=== PATIENT | male | born 1965 | race Caucasian/White ===

== ENCOUNTER 2017-07-30 08:33 | Emergency (ER) | payer BC ==
[~2017-07-30] VITALS: Ht 182.9 cm; Wt 104.3 kg
[2017-07-30] MEDS ORDERED: IV NORMAL SALINE 1000ML BAG 1,000 ML IV ONE (09:00)
[2017-07-30 09:04] LABS: BASO # 0.1 x10^3/uL (0.0-0.2); BASO % 1 % (0-3); BILIRUBIN,URINE NEGATIVE (NEG); EOS % 1 % (0-3); GLUCOSE,URINE NEGATIVE (NEG); HEMATOCRIT 48.3 % (39.0-53.0); LYMPH # 1.3 x10^3/uL (1.0-4.8); LYMPH % 8 % (24-48); MEAN CORPUSCULAR HEMOGLOBIN 29 pg (25-35); MEAN CORPUSCULAR HGB CONC 33 g/dL (31-37); MEAN CORPUSCULAR VOLUME 88 fL (79-100); MONO % 8 % (0-9); NEUT % 83 % (31-73); NITRITE,URINE POSITIVE (NEG); PLATELET COUNT 251 x10^3/uL (140-400); PROTEIN,URINE 30 mg/dL (NEG-TRACE); RED BLOOD COUNT 5.48 x10^6/uL (4.30-5.70); UROBILINOGEN,URINE 0.2 mg/dL (0.2 mg/dL); WHITE BLOOD COUNT 16.7 x10^3/uL (4.0-11.0)
[2017-07-30 09:12] LABS: CALCIUM 9.4 mg/dL (8.5-10.1); CREATININE 1.1 mg/dL (0.7-1.3); GFR 70.9; POTASSIUM 3.6 mmol/L (3.5-5.1)
[2017-07-30 09:13] LABS: BACTERIA,URINE MANY /HPF (0-FEW); SQUAMOUS EPITHELIAL CELL,UR OCC /LPF; WBC,URINE >40 /HPF (0-4)
[2017-07-30 09:18] LABS: ALBUMIN 4.2 g/dL (3.4-5.0); TOTAL BILIRUBIN 0.7 mg/dL (0.2-1.0); TOTAL PROTEIN 8.4 g/dL (6.4-8.2)
--- NOTE | 2017-07-30 09:21 | PHYS DOC ---
Past Medical History Past Medical History: Other Additional Past Medical Histor: KIDNEY STONES Past Surgical History: Other Additional Past Surgical Histo: NGUYEN TO FEET AND LEGS WHEN HE WAS 4 WITH MULTIPLE SURGERIES Alcohol Use: Rarely Drug Use: None Adult General Chief Complaint Chief Complaint: ABDOMINAL PAIN HPI HPI Patient is a 52 year old male who presents with abdominal pain, headache, nausea, body aches, increased urinary frequency, concentrated urine, decreased appetite. No BMs in 2 days but reports + flatus. Denies abdominal surgery in the past. No fevers. Denies that he received flu shot this year. No cough, no chest pain. Pt has h/o kidney stone 1 year ago and pt is unsure if similar symptoms. Symptoms came on gradually. PCP is Review of Systems Review of Systems Constitutional: Denies fever or chills [] Eyes: Denies change in visual acuity, redness, or eye pain [] HENT: Denies nasal congestion or sore throat [] Respiratory: Denies cough or shortness of breath [] Cardiovascular: denies chest pain GI: per hpi : Denies dysuria or hematuria [] Musculoskeletal: reports back pain, body aches Integument: Denies rash or skin lesions [] Neurologic: reports intermittent headaches, denies focal weakness or sensory changes [] Current Medications Current Medications Current Medications Medications (Trade) Dose Ordered Sig/Keanu Start Time Stop Time Status Last Admin Dose Admin Ceftriaxone Sodium 50 ml @ 100 mls/hr 1X ONCE 07/30/17 09:30 07/30/17 09:59 DC 07/30/17 09:33 100 MLS/HR Info (Do NOT chart on this entry -- for MONITORING) 1 each PRN DAILY PRN 07/30/17 09:45 08/01/17 09:44 Iohexol (Omnipaque 300 Mg/ml) 75 ml 1X ONCE 07/30/17 09:45 07/30/17 09:46 DC 07/30/17 09:53 75 ML Ketorolac Tromethamine (Toradol) 30 mg 1X ONCE 07/30/17 11:15 07/30/17 11:16 DC 07/30/17 11:22 30 MG Ondansetron HCl (Zofran) 4 mg 1X ONCE 07/30/17 11:15 07/30/17 11:16 DC 07/30/17 11:20 4 MG Sodium Chloride 1,000 ml @ 1,000 mls/hr 1X ONCE 07/30/17 09:00 07/30/17 09:59 DC 07/30/17 09:06 1,000 MLS/HR Allergies Allergies Allergies Coded Allergies Type Severity Reaction Last Updated Verified morphine Allergy Mild 07/30/17 Yes Physical Exam Physical Exam Constitutional: Well developed, well nourished, appears uncomfortable HENT: Normocephalic, atraumatic, bilateral external ears normal, oropharynx moist, no oral exudates, nose normal. [] Eyes: PERRLA, EOMI, conjunctiva normal, no discharge. [] Neck: Normal range of motion, no tenderness, supple, no stridor. [] Cardiovascular:Heart rate regular with regular rhythm, no murmur [] Lungs & Thorax: Bilateral breath sounds clear to auscultation [] Abdomen: Bowel sounds normal, soft, no tenderness, no masses, no pulsatile masses, nondistended Skin: Warm, dry, no erythema, no rash. [] Back: No tenderness, no CVA tenderness. [] Extremities: No tenderness, no cyanosis, no clubbing, ROM intact, no edema. [] Neurologic: Alert and oriented X 3, normal motor function, normal sensory function, no focal deficits noted. [] Psychologic: Affect normal, judgement normal, mood normal. [] Current Patient Data Vital Signs Vital Signs Date Time Temp Pulse Resp B/P (MAP) Pulse Ox O2 Delivery O2 Flow Rate FiO2 07/30/17 10:55 80 20 141/88 (105) 97 Room Air 07/30/17 08:44 98.1 98.1 Lab Values Laboratory Tests Test 07/30/17 08:50 07/30/17 09:00 White Blood Count 16.7 x10^3/uL (4.0-11.0) H Red Blood Count 5.48 x10^6/uL (4.30-5.70) Hemoglobin 16.0 g/dL (13.0-17.5) Hematocrit 48.3 % (39.0-53.0) Mean Corpuscular Volume 88 fL (79-100) Mean Corpuscular Hemoglobin 29 pg (25-35) Mean Corpuscular Hemoglobin Concent 33 g/dL (31-37) Red Cell Distribution Width 13.0 % (11.5-14.5) Platelet Count 251 x10^3/uL (140-400) Neutrophils (%) (Auto) 83 % (31-73) H Lymphocytes (%) (Auto) 8 % (24-48) L Monocytes (%) (Auto) 8 % (0-9) Eosinophils (%) (Auto) 1 % (0-3) Basophils (%) (Auto) 1 % (0-3) Neutrophils # (Auto) 13.9 x10^3uL (1.8-7.7) H Lymphocytes # (Auto) 1.3 x10^3/uL (1.0-4.8) Monocytes # (Auto) 1.3 x10^3/uL (0.0-1.1) H Eosinophils # (Auto) 0.2 x10^3/uL (0.0-0.7) Basophils # (Auto) 0.1 x10^3/uL (0.0-0.2) Segmented Neutrophils % 83 % (35-66) H Band Neutrophils % 4 % (0-9) Lymphocytes % 8 % (24-48) L Monocytes % 4 % (0-10) Eosinophils % 1 % (0-5) Platelet Estimate Adequate (ADEQUATE) Urine Collection Type Unknown Urine Color [place] Urine Clarity Clear Urine pH 6.0 Urine Specific [place] >=1.030 Urine Protein 30 mg/dL (NEG-TRACE) Urine Glucose (UA) Negative mg/dL (NEG) Urine Ketones (Stick) Trace mg/dL (NEG) Urine Blood Small (NEG) Urine Nitrite Positive (NEG) Urine Bilirubin Negative (NEG) Urine Urobilinogen Dipstick 0.2 mg/dL (0.2 mg/dL) Urine Leukocyte Esterase Moderate (NEG) Urine RBC 3-5 /HPF (0-2) Urine WBC >40 /HPF (0-4) Urine Squamous Epithelial Cells Occ /LPF Urine Bacteria Many /HPF (0-FEW) Urine Mucus Mod /LPF Sodium Level 136 mmol/L (136-145) Potassium Level 3.6 mmol/L (3.5-5.1) Chloride Level 100 mmol/L (98-107) Carbon Dioxide Level 30 mmol/L (21-32) Anion Gap 6 (6-14) Blood Urea Nitrogen 17 mg/dL (8-26) Creatinine 1.1 mg/dL (0.7-1.3) Estimated GFR (Cockcroft-Gault) 70.9 BUN/Creatinine Ratio 15 (6-20) Glucose Level 108 mg/dL (70-99) H Calcium Level 9.4 mg/dL (8.5-10.1) Total Bilirubin 0.7 mg/dL (0.2-1.0) Aspartate Amino Transferase (AST) 16 U/L (15-37) Alanine Aminotransferase (ALT) 30 U/L (16-63) Alkaline Phosphatase 94 U/L (46-116) Creatine Kinase 87 U/L (39-308) Total Protein 8.4 g/dL (6.4-8.2) H Albumin 4.2 g/dL (3.4-5.0) Albumin/Globulin Ratio 1.0 (1.0-1.7) Influenza Type A Antigen Negative (NEGATIVE) Influenza Type B Antigen Negative (NEGATIVE) Laboratory Tests 07/30/17 08:50 Laboratory Tests 07/30/17 08:50 EKG EKG [] Radiology/Procedures Radiology/Procedures CT abd/pel: Impression: 1. 4 mm calculus identified in the proximal right ureter causing minimal right-sided hydronephrosis. 2. Multiple bilateral intrarenal system calculi with largest measuring 5 mm in the left kidney. [] Course & Med Decision Making Course & Med Decision Making Pertinent Labs and Imaging studies reviewed. (See chart for details) Patient given IV fluids, patient has urinary tract infection, IV Rocephin was given. Patient's CT scan shows obstructive stone with mild hydronephrosis. Offered admission but patient would like to go home. IV Toradol and Zofran given. Strict return precautions given, referred patient to [facility] urology. Patient was given prescriptions for ciprofloxacin for 10 days, Flomax, ibuprofen, Percocet for breakthrough pain, and Zofran ODT. Dragon Disclaimer Dragon Disclaimer This electronic medical record was generated, in whole or in part, using a voice recognition dictation system. Departure Departure Impression: Primary Impression: Kidney stone Additional Impression: UTI (urinary tract infection) Disposition: 01 HOME, SELF-CARE Condition: STABLE Referrals: NO PCP (PCP) Scripts Ondansetron (ZOFRAN ODT) 4 Mg Tab.rapdis 1 TAB SL Q8HRS Y for NAUSEA, #10 TAB Prov: KATHY LIU MD 07/30/17 Ibuprofen (IBUPROFEN) 800 Mg Tablet 800 MG PO PRN TID Y for PAIN, #20 TAB take with food or milk to avoid upsetting stomach Prov: KATHY LIU MD 07/30/17 Oxycodone/Apap 5-325 (PERCOCET 5-325 MG TABLET) 1 Each Tablet 1-2 EACH PO PRN TID Y for breakthrough pain, #15 TAB pain Prov: KATHY LIU MD 07/30/17 Tamsulosin Hcl (FLOMAX) 0.4 Mg Cap.er.24h 1 CAP PO DAILY, #14 CAP 0 Refills Prov: KATHY LIU MD 07/30/17 Ciprofloxacin Hcl (CIPROFLOXACIN HCL) 500 Mg Tablet 1 TAB PO BID, #20 TAB Prov: KATHY LIU MD 07/30/17 Problem Qualifiers KATHY LIU MD Jul 30, 2017 09:21
[2017-07-30 09:36] LABS: OBC FLU VALID
[2017-07-30] MEDS ORDERED: CONTRAST GIVEN MC PRN (09:45)
[2017-07-30] MEDS ORDERED: IOHEXOL 300 MG/ML 100ML VIAL. IV ONE (09:45)
[2017-07-30 09:47] LABS: % EOS 1 % (0-5); PLT ESTIMATE ADEQUATE (ADEQUATE)
--- NOTE | 2017-07-30 10:49 | RAD ---
Examination: CT of the abdomen pelvis with IV contrast History: abdominal pain, nausea Comparison: None available Technique: Axial CT images of the abdomen pelvis performed with IV contrast. Coronal and sagittal reformats are performed PQRS Compliance Statement: One or more of the following individualized dose reduction techniques were utilized for this examination: 1. Automated exposure control 2. Adjustment of the mA and/or kV according to patient size 3. Use of iterative reconstruction technique Findings: Mild bibasal lung atelectasis is identified. No evidence of free air identified in the abdomen. There is mild decreased attenuation noted throughout the liver likely hepatic steatosis. The gallbladder is mildly distended. The visualized spleen, adrenals grossly was unremarkable. The stomach is mildly distended. The visualized pancreas grossly appears unremarkable. The small bowel is nondilated. Feces and gas noted throughout the colon. The urinary bladder is mildly distended. The appendix is not clearly identified. No evidence of inflammatory stranding in the right lower quadrant of the abdomen. The bilateral kidneys enhance symmetrically. Multiple intrarenal collecting system currently identified in the bilateral kidneys with the largest measuring 5 mm in the left kidney. There is a 4 mm calculus identified in the proximal right ureter best visualized on series 2 image 56. Minimal right-sided hydronephrosis. The urinary bladder is mildly distended. The gallbladder grossly appears unremarkable. No evidence of lytic bony destructive lesion. Mild degenerative changes lumbar spine. Small fat-containing of umbilical hernia. Impression: 1. 4 mm calculus identified in the proximal right ureter causing minimal right-sided hydronephrosis. 2. Multiple bilateral intrarenal system calculi with largest measuring 5 mm in the left kidney.
[2017-07-30] MEDS ORDERED: ONDANSETRON PF 4 MG/2 ML VIAL. IV ONE (11:15)
[2017-07-30] MEDS ORDERED: KETOROLAC 30 MG/ML INJ. IV ONE (11:15)
[2017-07-30] MEDS ORDERED: ONDA4TAB10 SL (11:21)
[2017-07-30] MEDS ORDERED: TAMS0.4C97 PO (11:21)
[2017-07-30] MEDS ORDERED: OXYC-323 PO (11:21)
[2017-07-30] MEDS ORDERED: CIPR500T PO (11:21)
[2017-07-30] MEDS ORDERED: IBUP-1060 PO (11:21)
[2017-07-30 11:25] VITALS: BP 133/90
== END 2017-07-30 11:28 | disposition home or self-care (01) ==
LOC: ER 08:33
DX: N39.0 Urinary tract infection, site not specified (principal); N20.0 Calculus of kidney; Z87.442 Personal history of urinary calculi; Z88.5 Allergy status to narcotic agent
CPT/HCPCS: 36415; 74177; 80053; 81001; 82550; 85007; 85025; 87086; 87804; 96365; 96375; 99285; J0690; J1885; J2405; J7030; Q9967

== ENCOUNTER 2017-12-08 21:45 | Emergency (ER) | payer BC ==
[2017-12-08 22:07] LABS: ADD MAN DIFF? NO
[2017-12-08 22:09] LABS: BASO # 0.1 x10^3/uL (0.0-0.2); BASO % 1 % (0-3); EOS # 0.2 x10^3/uL (0.0-0.7); EOS % 3 % (0-3); HEMATOCRIT 44.1 % (39.0-53.0); HEMOGLOBIN 15.2 g/dL (13.0-17.5); LYMPH # 1.4 x10^3/uL (1.0-4.8); LYMPH % 18 % (24-48); MEAN CORPUSCULAR HEMOGLOBIN 30 pg (25-35); MEAN CORPUSCULAR HGB CONC 34 g/dL (31-37); MEAN CORPUSCULAR VOLUME 88 fL (79-100); MONO # 0.7 x10^3/uL (0.0-1.1); MONO % 9 % (0-9); NEUT # 5.6 x10^3uL (1.8-7.7); NEUT % 70 % (31-73); PLATELET COUNT 253 x10^3/uL (140-400); RED BLOOD COUNT 5.03 x10^6/uL (4.30-5.70)
[2017-12-08 22:17] LABS: ANION GAP 6 (6-14); BLOOD UREA NITROGEN 20 mg/dL (8-26); BUN/CREATININE RATIO 14 (6-20); CALCIUM 8.9 mg/dL (8.5-10.1); CARBON DIOXIDE 28 mmol/L (21-32); CHLORIDE 104 mmol/L (98-107); CREATININE 1.4 mg/dL (0.7-1.3); GFR 53.6; GLUCOSE 113 mg/dL (70-99); POTASSIUM 3.9 mmol/L (3.5-5.1); SODIUM 138 mmol/L (136-145)
[2017-12-08 22:25] LABS: ALBUMIN 3.8 g/dL (3.4-5.0); ALBUMIN/GLOBULIN RATIO 1.1 (1.0-1.7); ALK PHOS 81 U/L (46-116); ALT (SGPT) 41 U/L (16-63); AST (SGOT) 21 U/L (15-37); TOTAL BILIRUBIN 0.3 mg/dL (0.2-1.0); TOTAL PROTEIN 7.4 g/dL (6.4-8.2)
[2017-12-08] MEDS: fentaNYL PF VIAL 100 MCG/2 ML VIAL IV (22:26)
[2017-12-08] MEDS: ONDANSETRON PF 4 MG/2 ML VIAL. IV (22:26)
[2017-12-08] MEDS: IV NORMAL SALINE 1000ML BAG 1,000 ML IV (22:27)
[2017-12-08 23:28] LABS: BILIRUBIN,URINE NEGATIVE (NEG); CLARITY,URINE CLEAR; COLOR,URINE YELLOW; GLUCOSE,URINE NEGATIVE (NEG); NITRITE,URINE NEGATIVE (NEG); PROTEIN,URINE NEGATIVE (NEG-TRACE); UROBILINOGEN,URINE 0.2 mg/dL (0.2 mg/dL)
[2017-12-08 23:33] LABS: BACTERIA,URINE 0 /HPF (0-FEW)
[2017-12-08] MEDS: TAMSULOSIN 0.4 MG CAP.ER.24H. PO (23:38)
[2017-12-08] MEDS: CIPROFLOXACIN HCL 250 MG TABLET. PO (23:38)
[2017-12-08] MEDS: KETOROLAC 30 MG/ML INJ. IV (23:39)
== END 2017-12-08 23:55 | disposition home or self-care (01) ==
LOC: ER 21:45
DX: N20.2 Calculus of kidney with calculus of ureter (principal); N13.9 Obstructive and reflux uropathy, unspecified; Z87.442 Personal history of urinary calculi; Z88.5 Allergy status to narcotic agent
CPT/HCPCS: 36415; 74176; 80053; 81001; 85025; 87086; 96361; 96374; 96375; 99285-25; J1885; J2405; J3010; J7030

== ENCOUNTER → 2020-08-14 | Outpatient (CLI) | payer BC ==
[2017-12-08 23:00] VITALS: BP 121/77
[~2020-08-14] MED LIST: CIPR500T PO; CIPR500T94 PO; HYDR-3164 PO; IBUP-1060 PO; IOHEXOL 240 MG/ML 50ML VIAL. PO ONE; IOHEXOL 300 MG/ML 100ML VIAL. IV ONE; ONDA4TAB10 PO; ONDA4TAB10 SL; OXYC1TAB15 PO; TAMS0.4C97 PO
--- NOTE | 2020-08-15 04:45 | RAD ---
CT abdomen pelvis with contrast dated 08/14/2020. Comparison made to 12/08/2017. CLINICAL INDICATION: Umbilical hernia. TECHNIQUE: Contiguous axial imaging the abdomen pelvis performed after the administration of 75 cc Omnipaque 300 . One or more of the following individualized dose reduction techniques were utilized for this examinat ion: 1. Automated exposure control 2. Adjustment of the mA and/or kV according to patient size 3. Use of iterative reconstruction technique. FINDINGS: Limited images of lung bases are clear. Heart size within normal limits. No pleural or pericardial ef fusion. Liver, spleen, pancreas, adrenal glands unremarkable. There is a 5 mm calcific stone at the upper to midpole left kidney. 2 mm calcific stone at the left kidney lower pole. There are [address] ones at the mid to lower pole right kidney. No ureteral stone or hydronephrosis. Gallbladder is colla psed and not well evaluated. Partially opacified GI tract normal in caliber and contour. No focal bowel wall thickening. No inflam matory stranding in the mesentery. The appendix is normal in caliber. No ascites or lymphadenopathy. There are scattered diverticula within the distal colon. There is a prominent umbilical hernia containing only fat, unchanged. No additional abdominal wall de fects are seen. Images of pelvis show nondistended urinary bladder. Prostate gland mildly enlarged. No free fluid or lymphadenopathy. Bone windows show no acute findings. Multilevel spondylosis. IMPRESSION: 1. Prominent umbilical hernia containing only fat, stable from prior study. 2. Bilateral nephrolithiasis, nonobstructive. 3. No new or acute findings. Electronically signed by: Jose Guadalupe Hernandez MD (08/15/2020 4:43 AM) RAVEN
== END ==
LOC: CT 15:28
PROVIDERS: ATTEND Surgery
DX: K42.9 Umbilical hernia without obstruction or gangrene (principal); K57.30 Diverticulosis of large intestine without perforation or abscess without bleeding; N20.0 Calculus of kidney; N40.0 Benign prostatic hyperplasia without lower urinary tract symptoms; R19.8 Other specified symptoms and signs involving the digestive system and abdomen
CPT/HCPCS: 74177; Q9966; Q9967

== ENCOUNTER → 2020-08-31 | Outpatient (CLI) | payer BC ==
[2017-12-08 23:00] VITALS: BP 121/77
[~2020-08-31] MED LIST changes: +ASPI-630 PO; -CIPR500T PO; +CIPR500T2 PO; +CRESTOR5 MG PO; -IOHEXOL 240 MG/ML 50ML VIAL. PO ONE; -IOHEXOL 300 MG/ML 100ML VIAL. IV ONE; +LACT1CAP37 PO; +OMEP20TA63 PO; +OXYC-325 PO
== END ==
LOC: LAB 15:11
PROVIDERS: ATTEND Surgery
DX: Z01.812 Encounter for preprocedural laboratory examination (principal); K42.9 Umbilical hernia without obstruction or gangrene; Z20.828 Contact with and (suspected) exposure to other viral communicable diseases
CPT/HCPCS: U0003

== ENCOUNTER 2020-09-04 06:05 | Day surgery (SDC) | payer BC ==
[~2020-09-04] VITALS: Ht 180.3 cm; Wt 106.0 kg
[~2020-09-04 06:05] MED LIST changes: +BUPIVACAINE-EPI 0.5%-1:200000 MPF 30 ML VIAL. INJ ONE; -OXYC-325 PO
[2020-09-04] MEDS: IV RINGERS,LACTATED 1000ML 1,000 ML IV SCH ×2 (06:46→09:30)
[2020-09-04] MEDS ORDERED: LIDOCAINE 2% PF 5 ML VIAL. ONE (06:56)
[2020-09-04] MEDS ORDERED: MIDAZOLAM HCL/PF 2 MG/2 ML VIAL. ONE (06:56)
[2020-09-04] MEDS ORDERED: fentaNYL PF VIAL 250 MCG/5 ML VIAL ONE (06:56)
[2020-09-04] MEDS ORDERED: PROPOFOL 10 MG/ML (20ML) VIAL. IV ONE (06:56)
[2020-09-04] MEDS ORDERED: ROCURONIUM 50 MG/5 ML VIAL. ONE (06:56)
[2020-09-04] MEDS ORDERED: fentaNYL PF VIAL 100 MCG/2 ML VIAL IV PRN ×2 (07:00)
[2020-09-04] MEDS ORDERED: LIDOCAINE 1% PF 2 ML VIAL. ID PRN (07:00)
[2020-09-04] MEDS ORDERED: HYDROmorphone 2 MG/ML VIAL IV PRN (07:00)
[2020-09-04] MEDS ORDERED: ONDANSETRON PF 4 MG/2 ML VIAL. IV PRN (07:00)
[2020-09-04] MEDS ORDERED: PROCHLORPERAZINE 10 MG/2 ML VIAL. IV PRN (07:00)
[2020-09-04] MEDS ORDERED: SUCCINYLCHOLINE 200 MG/10 ML VIAL. ONE (07:36)
[2020-09-04] MEDS ORDERED: DEXAMETHASONE SOD PHOS 4 MG/ML VIAL ONE (07:44)
[2020-09-04] MEDS ORDERED: ONDANSETRON PF 4 MG/2 ML VIAL. ONE (07:44)
[2020-09-04] MEDS ORDERED: KETOROLAC 30 MG/ML VIAL. ONE (08:23)
[2020-09-04] MEDS ORDERED: SEVOFLURANE 61 TO 120 MINUTES. IH ONE (08:23)
[2020-09-04] MEDS ORDERED: GLYCOPYRROLATE 1 MG/5 ML VIAL. ONE (08:26)
[2020-09-04] MEDS ORDERED: NEOSTIGMINE METHYLSULFATE 5 MG/5 ML SYRINGE. ONE (08:26)
--- NOTE | 2020-09-04 08:54 | PDOC4 ---
Operative Note Operative Note Operative Note: Preoperative Diagnosis: Umbilical hernia Postoperative Diagnosis: Same Procedure: Umbilical hernia repair with mesh Surgeon: Carlito [employer] Scientist: Joce AJ Anesthesia: General EBL: 10 mL Specimen: None Drains: None Complications: None Indication: The patient is a 55-year-old male who was referred with an umbilical hernia. He requests operative repair. The risks of surgery were discussed which include bleeding, infection, recurrence, pain, anesthetic risk, scar tissue, potential need for additional surgery procedure. He understands and would like to proceed. Description: The patient was taken the operating room and placed supine in the operating table. General anesthesia was performed. The abdomen was prepped with ChloraPrep and draped with sterile towels, sheets, and an Ioban. A small curved infraumbilical incision was made in the skin with a scalpel. Cautery dissection was carried down to the fascia. The umbilical tissue was elevated off the fascia exposing a small hernia defect. A preperitoneal plane was developed circumferentially with blunt dissection. A small Ventralex ST was then placed in the preperitoneal plane. The mesh was sutured into position using 0 Prolene placed in a horizontal mattress fashion. The fascial edges were closed over the mesh with 0 Prolene. The umbilical tissue was secured back to the fascia with 0 Vicryl. The subcutaneous tissue was closed with 3-0 Vicryl and skin approximated with 4-0 Monocryl. The incision was infiltrated with half percent Marcaine with epinephrine. Steri-Strips and a sterile dressing were applied. The patient tolerated the procedure well and was sent to the recovery room in stable condition. At the end of the case all counts were correct. BENSON LUNA MD Sep 04, 2020 08:54
--- NOTE | 2020-09-04 08:56 | DISCH ---
DISCHARGE INSTRUCTIONS Condition on Discharge Condition on Discharge: Stable Activity After Discharge Activity Instructions for Disc: Other, see below (No lifting over 20 lbs X 4 weeks) Diet after Discharge Diet after Discharge: Regular Wound Incision Care Wound/Incision Care: Other, see below (keep dressing clean and dry X 72 hours, may then remove and shower) Follow-Up Follow up with: Dr Luna in 2 weeks in office, call for appointment [phone] BENSON LUNA MD Sep 04, 2020 08:56
[2020-09-04] MEDS ORDERED: oxyCODONE/APAP 5/325 1 TAB TABLET PO ONE ×2 (09:00→09:30)
[2020-09-04] MEDS ORDERED: OXYC-325 PO (09:06)
[2020-09-04 09:52] VITALS: BP 138/81
== END 2020-09-04 10:25 | disposition home or self-care (01) ==
LOC: SURG 06:05
PROVIDERS: ATTEND Surgery
DX: K42.9 Umbilical hernia without obstruction or gangrene (principal); E78.00 Pure hypercholesterolemia, unspecified; K21.9 Gastro-esophageal reflux disease without esophagitis; F41.9 Anxiety disorder, unspecified; Z79.82 Long term (current) use of aspirin; Z79.899 Other long term (current) drug therapy; Z98.890 Other specified postprocedural states; Z88.6 Allergy status to analgesic agent
CPT/HCPCS: 49585; J0330; J0690; J1100; J1885; J2405; J2704; J2710; J3010; J3490; C1781; J2250